=== PATIENT | male | born 1940 | race African-American/Black ===

== ENCOUNTER 2018-03-22 15:54 | Inpatient (IN) | payer MEDICARE, OTHER ==
[~2018-03-22] VITALS: Ht 193 cm; Wt 114.8 kg
[2018-03-22 18:35] LABS: BG BASE EXCESS -5.9 mmol/L (-2.0-2.0); BG CARBOXYHEMOGLOBIN 0.3 % (0.5-1.5); BG DEOXYHEMOGLOBIN 6.8 % (0.0-5.0); BG FRACTION INSPIRED OXYGEN 21; BG HCO3 ACT 17.3 mmol/L (22.0-26.0); BG METHEMOGLOBIN 0.1 % (0.0-1.5); BG OXYGEN SATURATION 93.2 % (92.0-98.5); BG OXYHEMOGLOBIN 92.8 % (94.0-97.0); BG PO2 69.7 mmHg (75.0-100.0); BG SAMPLE SITE RIGHT BRACHIAL; BG TOTAL HEMOGLOBIN 12.5 g/dL (12.0-18.0); BG VENT MODE ROOM AIR
[2018-03-22 19:31] LABS: CHLORIDE 109 mEq/L (98-107)
[2018-03-22 19:34] LABS: INR 1.1; PARTIAL THROMBOPLASTIN TIME 22.8 sec (23.4-31.0); PROTHROMBIN TIME 11.1 sec (9.4-11.6)
[2018-03-22] MEDS ORDERED: AZITHROMYCIN 500 MG in DEXT 5% WATER 250 ML IV STA (19:39)
[2018-03-22] MEDS ORDERED: CEFTRIAXONE 1 G PREMIX 50 ML IV ONE (19:45)
[2018-03-22 20:27] LABS: BASOPHILS % 0.4 % (0.0-2.0); EOSINOPHILS % 0.4 % (0.0-5.0); HEMATOCRIT. 35.8 % (42.0-52.0); HEMOGLOBIN. 11.9 g/dL (14.0-18.0); LYMPHOCYTES % 19.9 % (20.0-50.0); MEAN CORPUSCULAR HEMOGLOBIN 31.9 pg (28.0-32.0); MEAN CORPUSCULAR VOLUME 96.3 fL (80.0-94.0); MEAN PLATELET VOLUME 12.4 fl (7.4-10.4); MONOCYTES % 4.1 % (2.0-8.0); NEUTROPHILS % 75.2 % (40.0-76.0); RED BLOOD CELL COUNT 3.72 mill/uL (4.7-6.1); RED CELL DISTRIBUTION WIDTH 14.2 % (11.6-14.6)
[2018-03-22] MEDS ORDERED: NITROGLYCERIN 0.4MG TABLET SL SL PRN (20:45)
[2018-03-22] MEDS ORDERED: TRAMADOL 50MG TABLET PO PRN (20:45)
[2018-03-22] MEDS ORDERED: DOCUSATE SODIUM 100MG CAPSULE PO PRN (20:45)
[2018-03-22] MEDS ORDERED: LORAZEPAM 0.5MG TABLET PO PRN (20:45)
[2018-03-22] MEDS ORDERED: ACETAMINOPHEN 325MG TABLET PO PRN (20:45)
[2018-03-22] MEDS ORDERED: MAGNESIUM/ALUMINUM HYDROXIDE/SIMETHICONE 30ML UDC PO PRN (20:45)
[2018-03-22] MEDS ORDERED: GUAIFENESIN 200MG/10ML SUGAR FREE UDC PO PRN (20:45)
[2018-03-22] MEDS ORDERED: NA PHOS,M-B/NA PHOS,DI-BA ENEMA 118ML PR PRN (20:45)
[2018-03-22] MEDS ORDERED: IPRATROPIUM/ALBUTEROL 0.5-3(2.5)MG/3ML NEB INH PRN (20:45)
[2018-03-22] MEDS ORDERED: CLONIDINE 0.1MG TABLET PO PRN (20:45)
[2018-03-22] MEDS ORDERED: ONDANSETRON HCL 4MG/2ML VIAL IV PRN (20:45)
[2018-03-22] MEDS ORDERED: DIPHENHYDRAMINE 50MG/ML VIAL IV PRN (20:45)
[2018-03-22 21:26] LABS: FOLIC ACID (FOLATE) SERUM >20 ng/mL ng/mL (>5.38)
[2018-03-22 21:37] LABS: VITAMIN B12 SERUM 481 pg/mL (211-911)
[2018-03-22] MEDS ORDERED: ZOLPIDEM TARTRATE 5MG TABLET PO PRN (22:00)
[2018-03-22 23:45] VITALS: BP 101/64
[2018-03-22] MEDS ORDERED: NAPR-1074 MT (23:57)
[2018-03-22] MEDS ORDERED: LOSA1TAB34 MT (23:58)
[2018-03-23] MEDS: SODIUM CHLORIDE 0.9% 1,000 ML IV SCH ×2 (00:38→12:37)
[2018-03-23 04:00] VITALS: BP 113/50
[2018-03-23] MEDS: PANTOPRAZOLE SODIUM 40 MG/VIAL IV SCH ×2 (05:47→18:09)
[2018-03-23 08:00] VITALS: BP 122/59
[2018-03-23] MEDS ORDERED: PNEUMOCOCCAL 23-VAL P-SAC VAC 0.5 ML IM ONE (12:00)
[2018-03-23] MEDS ORDERED: AZITHROMYCIN 500 MG in DEXT 5% WATER 250 ML IV SCH (12:00)
[2018-03-23 12:05] VITALS: BP 102/56
[2018-03-23] MEDS: CEFTRIAXONE 1 G PREMIX 50 ML IV SCH (12:36)
[2018-03-23 12:51] LABS: HEMATOCRIT 30.8 % (42.0-52.0); HEMOGLOBIN 10.3 g/dL (14.0-18.0); MEAN CORPUSCULAR HEMOGLOBIN 31.9 pg (28.0-32.0); MEAN CORPUSCULAR VOLUME 95.1 fL (80.0-94.0); PLATELET 53 x1000/uL (130-400); RED BLOOD CELL COUNT 3.24 mill/uL (4.7-6.1); RED CELL DISTRIBUTION WIDTH 14.1 % (11.6-14.6)
[2018-03-23 13:04] LABS: CHLORIDE 112 mEq/L (98-107)
[2018-03-23 13:08] LABS: PLATELET 41 x1000/uL (130-400)
[2018-03-23 16:00] VITALS: BP 104/58
[2018-03-24] VITALS: BP 110/50
[2018-03-24 04:00] VITALS: BP 120/57
[2018-03-24] MEDS: PANTOPRAZOLE SODIUM 40 MG/VIAL IV SCH (06:09)
[2018-03-24 08:00] VITALS: BP 122/66
[2018-03-24] MEDS: CEFTRIAXONE 1 G PREMIX 50 ML IV SCH (12:29)
[2018-03-24] MEDS: SODIUM CHLORIDE 0.9% 1,000 ML IV SCH (12:29)
== END 2018-03-24 13:50 | disposition left against medical advice (07) | DRG 871 ==
LOC: ER 16:19 → 5WST 19:57 → EDBEDREQTM 20:03 → EDBEDREQ 20:03 → SUPCPDRO 20:09 → ENRESERV 21:06
PROVIDERS: ADMIT Internal Medicine; ATTEND Internal Medicine
DX: A41.9 Sepsis, unspecified organism (principal); N17.0 Acute kidney failure with tubular necrosis; G92 Toxic encephalopathy; J18.9 Pneumonia, unspecified organism; K92.1 Melena; D53.9 Nutritional anemia, unspecified; D69.6 Thrombocytopenia, unspecified; I10 Essential (primary) hypertension; Z53.21 Procedure and treatment not carried out due to patient leaving prior to being seen by health care provider; Z79.899 Other long term (current) drug therapy
CPT/HCPCS: 36415; 36600; 70450; 71045; 76770; 80053; 80061; 82375; 82607; 82746; 82805; 83036; 83540; 83550; 83605; 83690; 83880; 84484; 85025; 85027; 85610; 85730; 86850; 86900; 87040; 90732; 93005; 93306; 93970; 96365; 96368; 99291; C9113; J0456; J0696; J7030; J7060